=== PATIENT | male | born 1940 | race Caucasian/White ===

== ENCOUNTER → 2017-07-15 | Outpatient (CLI) | payer MEDICARE, BC ==
[~2017-07-15] MED LIST: OMNIPAQUE 350 MG/ML, 100ML BOTTLE ONE
== END | disposition home or self-care (01) ==
LOC: CFH 08:54
PROVIDERS: ATTEND Urology
DX: N18.9 Chronic kidney disease, unspecified (principal); D41.00 Neoplasm of uncertain behavior of unspecified kidney; J90 Pleural effusion, not elsewhere classified; I51.7 Cardiomegaly; M51.36 Other intervertebral disc degeneration, lumbar region
CPT/HCPCS: 74178; Q9967